=== PATIENT | male | born 1950 | race Caucasian/White ===

== ENCOUNTER 2016-07-17 10:38 | Outpatient (CLI) | payer MEDICARE, OTHER | END 2016-07-17 10:39 | disposition home or self-care (01) | DX: G47.33 Obstructive sleep apnea (adult) (pediatric) (principal) | CPT/HCPCS: 99203; G0463 ==

== ENCOUNTER 2016-08-17 21:17 | Outpatient (CLI) | payer MEDICARE, OTHER | END 2016-08-17 21:18 | disposition home or self-care (01) | DX: G47.33 Obstructive sleep apnea (adult) (pediatric) (principal); G47.61 Periodic limb movement disorder ==

== ENCOUNTER 2016-09-07 09:11 | Outpatient (CLI) | payer MEDICARE, OTHER | END 2016-09-07 09:12 | disposition home or self-care (01) | DX: G47.61 Periodic limb movement disorder (principal); R06.83 Snoring; G47.00 Insomnia, unspecified | CPT/HCPCS: 99214; G0463 ==

== ENCOUNTER 2022-05-06 14:48 | Outpatient (CLI) | payer MEDICARE, OTHER | END 2022-05-06 14:49 | disposition critical access hospital (66) | LOC: EMS 14:48 | DX: R07.9 Chest pain, unspecified (principal) | CPT/HCPCS: A0425; A0427 ==

== ENCOUNTER 2022-05-06 14:57 | Emergency (ER) | payer MEDICARE, OTHER ==
--- NOTE | 2022-05-06 15:25 | ED Physician Documentation ---
PD HPI CHEST PAIN - Stated complaint Stated Complaint: CP - Chief complaint Chief Complaint: Cardiac - History obtained from History obtained from: Patient - History of Present Illness Timing - onset: How many days ago (3) Timing - onset during: Exertion (3) Timing - duration: Days (3) Timing - details: Gradual onset, Intermittant Quality: Pressure, Tightness Location: Substernal Radiation: Back Improved by: Rest Worsened by: Exertion (The patient has noticed a pressure type pain and substernal into the back with walking and going up steps for the last 3 days. Last night and today he noticed it at times with rest.). No: Inspiration, Eating, Movement Associated symptoms: No: Shortness of air, Nausea, Feeling faint / dizzy, Palpitations, Cough Similar symptoms before: Has not had sx before Recently seen: Not recently seen Review of Systems Constitutional: denies: Fever, Chills Nose: denies: Rhinorrhea / runny nose Throat: denies: Sore throat Cardiac: reports: Chest pain / pressure. denies: Palpitations, Pedal edema, Calf pain Respiratory: denies: Dyspnea, Cough GI: denies: Abdominal Pain, Nausea, Vomiting, Diarrhea Skin: denies: Rash Neurologic: denies: Near syncope PD PAST MEDICAL HISTORY - Past Medical History Cardiovascular: Hypertension, High cholesterol Respiratory: None Neuro: None Endocrine/Autoimmune: Type 2 diabetes : Benign prostate hypertrophy - Present Medications Home Medications: Ambulatory Orders Medication Instructions Recorded Confirmed Sulfacetamide 10% Ophth Drops 1 drops RIGHTEYE Q3H #1 bottle 01/08/16 [Sulfamide 10% Ophth Drops] Finasteride [Proscar] 5 mg PO DAILY 05/06/22 05/06/22 Omeprazole Magnesium 20 mg PO 05/06/22 Simvastatin [Zocor] 40 mg PO 05/06/22 Sitagliptin Phos/Metformin HCl 05/06/22 [Janumet 50-500 mg Tablet] Sitagliptin Phos/Metformin HCl 05/06/22 [Janumet 50-500 mg Tablet] Tamsulosin [Flomax] 0.4 mg PO DAILY 05/06/22 05/06/22 Telmisartan 05/06/22 - Allergies Allergies/Adverse Reactions: Allergies Allergy/AdvReac Type Severity Reaction Status Date / Time No Known Drug Allergies Allergy Verified 05/06/22 15:04 - Living Situation Living Situation: reports: Alone Living Arrangement: reports: At home, Other (very active at home.) - Social History Does the pt smoke?: No Smoking Status: Never smoker PD ED PE NORMAL - Vitals Vital signs reviewed: Yes - General General: Alert and oriented X 3, No acute distress, Well developed/nourished - HEENT HEENT: Pharynx benign - Neck Neck: Supple, no meningeal sign, No adenopathy - Cardiac Cardiac: RRR, No murmur - Respiratory Respiratory: No respiratory distress, Clear bilaterally - Abdomen Abdomen: Normal bowel sounds, Soft, Non tender, Non distended - Back Back: No spinal TTP - Derm Derm: Normal color, Warm and dry - Extremities Extremities: Normal ROM s pain, No edema, No calf tenderness / cord - Neuro Neuro: Alert and oriented X 3, No motor deficit, Normal speech Results - Vitals Vitals: Vital Signs - 24 hr 05/06/22 05/06/22 05/06/22 15:04 15:09 15:39 Temperature 36.5 C 36.5 C Heart Rate 66 66 63 Respiratory 16 16 14 Rate Blood Pressure 181/82 H 181/82 H 156/80 H O2 Saturation 98 98 96 05/06/22 05/06/22 05/06/22 16:09 17:00 17:30 Temperature Heart Rate 64 65 66 Respiratory 15 13 12 Rate Blood Pressure 170/84 H 172/88 H 140/62 H O2 Saturation 96 96 96 Oxygen O2 Source Room air - EKG (time done) 15:39 Rate: Rate (enter#) (59) Rhythm: NSR [place]: Normal Intervals: Normal [place] QRS: Normal Ischemia: Normal ST segments. No: ST elevation c/w ischemia, ST depression - Labs Labs: Laboratory Tests 05/06/22 05/06/22 05/06/22 15:37 15:37 15:37 WBC 8.8 RBC 4.89 Hgb 14.7 Hct 43.9 MCV 89.8 MCH 30.1 MCHC 33.5 RDW 12.3 Plt Count 181 MPV 9.6 Neut # (Auto) 4.1 Lymph # (Auto) 3.9 H [place] # (Auto) 0.5 Eos # (Auto) 0.1 Baso # (Auto) 0.1 Absolute Nucleated RBC 0.00 Nucleated RBC % 0.0 Sodium 136 Potassium 4.2 Chloride 101 Carbon Dioxide 25 Anion Gap 10.0 BUN 15 Creatinine 0.9 Estimated GFR (MDRD) 82 L Glucose 141 H Calcium 9.5 Total Bilirubin 0.8 AST 20 ALT 24 Alkaline Phosphatase 55 Troponin I High Sens 124.3 H* B-Natriuretic Peptide Total Protein 7.4 Albumin 4.3 Globulin 3.1 Albumin/Globulin Ratio 1.4 Lipase 58 H 05/06/22 05/06/22 15:37 16:48 WBC RBC Hgb Hct MCV MCH MCHC RDW Plt Count MPV Neut # (Auto) Lymph # (Auto) Delta # (Auto) Eos # (Auto) Baso # (Auto) Absolute Nucleated RBC Nucleated RBC % Sodium Potassium Chloride Carbon Dioxide Anion Gap BUN Creatinine Estimated GFR (MDRD) Glucose Calcium Total Bilirubin AST ALT Alkaline Phosphatase Troponin I High Sens 129.2 H* B-Natriuretic Peptide 47 Total Protein Albumin Globulin Albumin/Globulin Ratio Lipase - Rads (name of study) chest xray Radiology: Prelim report reviewed (no cardiopulmonary acute changes), See rad report PD MEDICAL DECISION MAKING - ED course Complexity details: reviewed results (ECG without ischemic changes), considered differential (Patient has had several days of exertional chest pain but also some pain at rest. His EKG is normal but has an elevated troponin concerning for unstable angina. Given Lovenox, beta-agustina, and nitro patch. Already had aspirin at home. Statin daily.), d/w patient ED course: The patient has exertional chest pain and then some what at rest over the past several days. Some exertional dyspnea for a week or 2 prior. He has no EKG changes. He had felt improved on route with nitroglycerin by EMS. He had taken aspirin at home. He does have an elevated troponin with the repeat being similar. This would be likely consistent with or concerning for either mild myocardial occlusion or more likely unstable angina. I feel he needs more cardiac evaluation with evaluation of unstable angina. We do not offer the services at our hospital. We will attempt transfer but at this point no other outlying facilities have beds available. The patient is given nitro patch, Lovenox, metoprolol here. He does take an aspirin earlier today so does not need one here. We will start 1 daily. He does take atorvastatin and a blood pressure medicine at home. We will continue these. We will since continue to seek bed availability for transfer. Departure - Departure Disposition: 02 Transfer Acute Care Hosp Clinical Impression: Exertional chest pain, Elevated troponin, Unstable angina Condition: Stable Record reviewed to determine appropriate education?: Yes
--- NOTE | 2022-05-06 15:32 | XRAY Report ---
PROCEDURE: Chest 1 View X-Ray INDICATIONS: Chest Pain TECHNIQUE: One view of the chest was acquired. COMPARISON: None. FINDINGS: Surgical changes and devices: None. Lungs and pleura: No pleural effusions or pneumothorax. Lungs are clear. Mediastinum: Mediastinal contours appear normal. Heart size is normal. Bones and chest wall: No suspicious bony lesions. Overlying soft tissues appear unremarkable. IMPRESSION: No acute cardiopulmonary findings Reviewed by: Shahram Ayoub MD on 05/06/2022 2:31 PM [place] Approved by: Shahram Ayoub MD on 05/06/2022 2:31 PM AKST Station ID: [id number]
[2022-05-06 15:49] LABS: BASOPHILS # (AUTO) 0.1 10^3/uL (0.0-0.1); EOSINOPHILS # (AUTO) 0.1 10^3/uL (0.0-0.7); EOSINOPHILS % (AUTO) 1.6 %; HCT - HEMATOCRIT 43.9 % (42.0-52.0); HGB - HEMOGLOBIN 14.7 g/dL (14.0-18.0); LYMPHOCYTES # (AUTO) 3.9 10^3/uL (1.5-3.5); LYMPHOCYTES % (AUTO) 44.9 %; MEAN CORPUSCULAR HEMOGLOBIN 30.1 pg (27.0-31.0); MEAN CORPUSCULAR HGB CONC 33.5 g/dL (32.0-36.0); MEAN CORPUSCULAR VOLUME 89.8 fL (80.0-94.0); MEAN PLATELET VOLUME 9.6 fL (7.4-11.4); MONOCYTES # (AUTO) 0.5 10^3/uL (0.0-1.0); MONOCYTES % (AUTO) 5.5 %; NEUTROPHILS # (AUTO) 4.1 10^3/uL (1.5-6.6); NEUTROPHILS % (AUTO) 46.8 %; PLT - PLATELET COUNT 181 10^3/uL (130-450); RED BLOOD COUNT 4.89 10^6/uL (4.70-6.10); RED CELL DISTRIBUTION WIDTH 12.3 % (12.0-15.0); WHITE BLOOD COUNT 8.8 x10^3/uL (4.8-10.8)
[2022-05-06 15:58] LABS: ALBUMIN 4.3 g/dL (3.2-5.5); ALBUMIN/GLOBULIN RATIO 1.4 (1.0-2.2); BILIRUBIN,TOTAL 0.8 mg/dL (0.2-1.0); CALCIUM 9.5 mg/dL (8.5-10.3); CREATININE 0.9 mg/dL (0.6-1.2); POTASSIUM 4.2 mmol/L (3.5-5.0); TOTAL PROTEIN 7.4 g/dL (6.7-8.2)
[2022-05-06] MEDS ORDERED: NITROGLYCERIN 0.2 MG/HR PATCH TOP STA (16:34)
[2022-05-06] MEDS ORDERED: ENOXAPARIN 100 MG/ML SYRINGE SUBQ STA (16:34)
[2022-05-06] MEDS ORDERED: METOPROLOL SUCCINATE 25 MG TABLET PO STA (17:59)
[2022-05-07] MEDS: TAMSULOSIN 0.4 MG CAPSULE PO SCH (09:13)
[2022-05-07] MEDS: ENOXAPARIN 100 MG/ML SYRINGE SUBQ SCH ×2 (09:13→20:46)
[2022-05-07] MEDS: ASPIRIN EC 81 MG TABLET PO SCH (09:13)
[2022-05-07] MEDS: METOPROLOL SUCCINATE 25 MG TABLET PO SCH (09:13)
[2022-05-07] MEDS: metFORMIN 500 MG TABLET PO SCH ×2 (09:13→20:46)
[2022-05-07] MEDS: ATORVASTATIN 40 MG TABLET PO SCH (09:13)
--- NOTE | 2022-05-07 12:22 | ED Physician Documentation ---
ED Addendum - Addendum Addendum: 05/07/22 12:19 The patient is awake alert and conversant. He was eating breakfast as I met with him. He states he was feeling fine at this time without any pain. He states he had a couple of twinges of pain in his chest and scapular area overnight but did not tell anybody about it. It was not consistent. Blood tests this morning showed a leveling of his troponin at the 400s level. Given still some intermittent chest discomfort at rest, I feel the patient still needs cardiac evaluation. No other facilities have yet to come up with a bed available. He had had a nitro patch on yesterday but was off over the evening and overnight. This may account for some of his chest discomfort overnight. I ordered a nitro patch to be daily. He is continuing with the Lovenox, statin, beta-agustina, aspirin as well as his usual home medicines. We are still looking for accepting facility for transfer for cardiology evaluation. Assessment: Unstable angina with elevated troponin.
[2022-05-07] MEDS: NITROGLYCERIN 0.4 MG/HR PATCH TOP SCH (12:51)
[2022-05-07] MEDS ORDERED: diphenhydrAMINE 25 MG CAPSULE PO STA (21:58)
[2022-05-08] MEDS: ASPIRIN EC 81 MG TABLET PO SCH (10:29)
[2022-05-08] MEDS: ATORVASTATIN 40 MG TABLET PO SCH (10:29)
[2022-05-08] MEDS: ENOXAPARIN 100 MG/ML SYRINGE SUBQ SCH ×2 (10:29→20:58)
[2022-05-08] MEDS: TAMSULOSIN 0.4 MG CAPSULE PO SCH (10:30)
[2022-05-08] MEDS: metFORMIN 500 MG TABLET PO SCH ×2 (10:30→20:59)
[2022-05-08] MEDS: METOPROLOL SUCCINATE 25 MG TABLET PO SCH (10:30)
[2022-05-08] MEDS: NITROGLYCERIN 0.4 MG/HR PATCH TOP SCH (10:43)
--- NOTE | 2022-05-08 15:12 | ED Physician Documentation ---
ED Addendum - Addendum Addendum: 05/08/22 15:09 Patient had 30 second episode of chest pain when sitting up. Repeat EKG shows no acute abnormalities. Time of EKG 1444. 80, sinus rhythm, left axis deviation. Inverted T waves in 3 and aVF. Patient now asymptomatic
--- NOTE | 2022-05-08 18:17 | ED Physician Documentation ---
ED Addendum - Addendum Addendum: 05/08/22 18:15 Patient was signed out to me at change of shift this morning, pending transfer for non-ST elevation GA. Patient has been without complaints today, and is chest pain-free. He is continued his medications as recommended by cardiology. He continues to be on the waiting list for transfer.
[2022-05-08 19:21] LABS: BASOPHILS # (AUTO) 0.1 10^3/uL (0.0-0.1); EOSINOPHILS # (AUTO) 0.2 10^3/uL (0.0-0.7); EOSINOPHILS % (AUTO) 1.7 %; HGB - HEMOGLOBIN 14.3 g/dL (14.0-18.0); LYMPHOCYTES # (AUTO) 4.8 10^3/uL (1.5-3.5); LYMPHOCYTES % (AUTO) 45.6 %; MEAN CORPUSCULAR HEMOGLOBIN 30.3 pg (27.0-31.0); MEAN CORPUSCULAR HGB CONC 33.3 g/dL (32.0-36.0); MEAN CORPUSCULAR VOLUME 91.1 fL (80.0-94.0); MEAN PLATELET VOLUME 9.4 fL (7.4-11.4); MONOCYTES # (AUTO) 0.7 10^3/uL (0.0-1.0); MONOCYTES % (AUTO) 6.9 %; NEUTROPHILS # (AUTO) 4.7 10^3/uL (1.5-6.6); NEUTROPHILS % (AUTO) 44.4 %; PLT - PLATELET COUNT 199 10^3/uL (130-450); RED BLOOD COUNT 4.72 10^6/uL (4.70-6.10); RED CELL DISTRIBUTION WIDTH 12.6 % (12.0-15.0); WHITE BLOOD COUNT 10.5 x10^3/uL (4.8-10.8)
[2022-05-08 19:32] LABS: ALBUMIN 4.2 g/dL (3.2-5.5); ALBUMIN/GLOBULIN RATIO 1.3 (1.0-2.2); BILIRUBIN,TOTAL 0.8 mg/dL (0.2-1.0); CALCIUM 9.3 mg/dL (8.5-10.3); TOTAL PROTEIN 7.5 g/dL (6.7-8.2)
[2022-05-08] MEDS ORDERED: diphenhydrAMINE 25 MG CAPSULE PO STA (20:45)
[2022-05-09] MEDS: ASPIRIN EC 81 MG TABLET PO SCH (08:36)
[2022-05-09] MEDS: metFORMIN 500 MG TABLET PO SCH ×2 (08:37→20:34)
[2022-05-09] MEDS: ATORVASTATIN 40 MG TABLET PO SCH (08:37)
[2022-05-09] MEDS: METOPROLOL SUCCINATE 25 MG TABLET PO SCH (08:37)
[2022-05-09] MEDS: TAMSULOSIN 0.4 MG CAPSULE PO SCH (08:38)
[2022-05-09] MEDS: ENOXAPARIN 100 MG/ML SYRINGE SUBQ SCH ×2 (08:44→20:34)
[2022-05-09] MEDS: NITROGLYCERIN 0.4 MG/HR PATCH TOP SCH (08:49)
--- NOTE | 2022-05-09 13:43 | ED Physician Documentation ---
ED Addendum - Addendum Addendum: 05/09/22 13:39 The patient states he has been feeling okay over the last several days. He reports a vague chest tightness periodically but no pain or consistency. He is maintained on Lovenox, aspirin, statin, beta-agustina and nitro patch. An echocardiogram was done this morning with results pending. As of this time of this report, there had not been any excepting facilities for further evaluation of his non-STEMI versus unstable angina. Concerning is still the episodic chest discomfort. We could consider increasing the nitro paste or changing to Imdur. Can reassess troponin again later today to ensure still lowering. Awaiting transfer for further cardiac evaluation. 05/09/22 13:42 Addendum with review of the echocardiographic worksheet: The patient has an overall ejection fraction of 55 to 60%. No obvious regional wall abnormalities are seen. There are some mild thickening of the mitral valve leaflets. No effusions seen. As such there is not any obvious regional infarct visible by regional wall abnormality. This may actually limit give credence to the idea of unstable angina without a full area of infarct as yet. I still feel he needs better assessment of coronary flow and cardiology evaluation.
[2022-05-09] MEDS: ISOSORBIDE MONONITRATE ER 30 MG TABLET PO SCH (14:36)
[2022-05-09] MEDS ORDERED: diphenhydrAMINE 25 MG CAPSULE PO STA (20:36)
[2022-05-10] MEDS ORDERED: SIMETHICONE CHEW 80 MG TABLET PO STA (01:06)
[2022-05-10 07:21] LABS: CALCIUM 9.4 mg/dL (8.5-10.3); CREATININE 0.9 mg/dL (0.6-1.2)
[2022-05-10] MEDS: ASPIRIN EC 81 MG TABLET PO SCH (10:37)
[2022-05-10] MEDS: ATORVASTATIN 40 MG TABLET PO SCH (10:37)
[2022-05-10] MEDS: metFORMIN 500 MG TABLET PO SCH ×2 (10:37→20:34)
[2022-05-10] MEDS: ISOSORBIDE MONONITRATE ER 30 MG TABLET PO SCH (10:37)
[2022-05-10] MEDS: ENOXAPARIN 100 MG/ML SYRINGE SUBQ SCH ×2 (10:37→20:34)
[2022-05-10] MEDS: METOPROLOL SUCCINATE 25 MG TABLET PO SCH (10:38)
[2022-05-10] MEDS: TAMSULOSIN 0.4 MG CAPSULE PO SCH (10:38)
--- NOTE | 2022-05-10 17:55 | ED Physician Documentation ---
ED Addendum - Addendum Addendum: 05/10/22 17:54 The patient was signed out to me at change of shift, continuing to board in the emergency department with a non-ST elevation CA, awaiting acceptance at a facility with cardiology capabilities. The patient has not had any stated complaints today, though throughout the night he had continued to have occasional episodes of chest pain. It has continued to be felt by the original provider and cardiology that the patient should continue the plan to be transferred to an inpatient setting with cardiology, as there is concern over unstable angina. The patient continues to be waitlisted at other facilities with this capability and we will continue to monitor his situation until he is excepted or cleared by cardiology.
[2022-05-10] MEDS ORDERED: diphenhydrAMINE 25 MG CAPSULE PO PRN (21:41)
[2022-05-11] MEDS: ENOXAPARIN 100 MG/ML SYRINGE SUBQ SCH (09:15)
[2022-05-11] MEDS: ASPIRIN EC 81 MG TABLET PO SCH (09:15)
[2022-05-11] MEDS: METOPROLOL SUCCINATE 25 MG TABLET PO SCH (09:15)
[2022-05-11] MEDS: ISOSORBIDE MONONITRATE ER 30 MG TABLET PO SCH (09:15)
[2022-05-11] MEDS ORDERED: CARBOXYMETHYLCELLULOSE OPHTH DROPS EACHEYE PRN (09:24)
[2022-05-11] MEDS: ATORVASTATIN 40 MG TABLET PO SCH (09:27)
[2022-05-11] MEDS: TAMSULOSIN 0.4 MG CAPSULE PO SCH (09:28)
[2022-05-11] MEDS: metFORMIN 500 MG TABLET PO SCH (09:28)
--- NOTE | 2022-05-11 09:38 | ED Physician Documentation ---
ED Addendum - Addendum Addendum: 05/11/22 09:37 Spoke with [facility], hospitalist, Dr. Galicia, who graciously accepts in transfer. We will await bed confirmation prior to transfer. Patient is doing well this morning. No chest pain. His troponin is down to 80 yesterday. His echocardiogram does not show any acute abnormalities and chest x-ray does not show any acute abnormalities. COBRA forms completed. This document was made in part using voice recognition software. While efforts are made to proofread this document, sound alike and grammatical errors may occur. Departure - Departure Disposition: 02 Transfer Acute Care Hosp Clinical Impression: Exertional chest pain, Elevated troponin, Unstable angina Condition: Stable
[2022-05-11 10:42] VITALS: BP 109/93
== END 2022-05-11 12:25 | disposition short-term general hospital (02) ==
LOC: EDUNIT# → ED 14:57
DX: I21.4 Non-ST elevation (NSTEMI) myocardial infarction (principal); I11.9 Hypertensive heart disease without heart failure; Z20.822 Contact with and (suspected) exposure to COVID-19
CPT/HCPCS: 36415; 71045; 80048; 80053; 83690; 83735; 83880; 84484; 85025; 87635; 93005; 93306; 99284; 99285; A9270; J1650

== ENCOUNTER 2022-08-11 10:56 | Outpatient (CLI) | payer MEDICARE, OTHER ==
[2022-08-11 11:15] LABS: CALCIUM 9.8 mg/dL (8.5-10.3); POTASSIUM 4.4 mmol/L (3.5-5.0)
== END 2022-08-11 10:57 | disposition home or self-care (01) ==
LOC: LAB 10:56
PROVIDERS: ATTEND Internal Medicine Cardiovascular Disease
DX: I25.10 Atherosclerotic heart disease of native coronary artery without angina pectoris (principal)
CPT/HCPCS: 36415; 80048; 93798

== ENCOUNTER 2022-12-11 14:05 | Emergency (ER) | payer MEDICARE, OTHER ==
--- NOTE | 2022-12-11 14:27 | ED Physician Documentation ---
PD HPI CHEST PAIN - Stated complaint Stated Complaint: CHEST PX - Chief complaint Chief Complaint: Cardiac - History obtained from History obtained from: Patient - Additional information Additional information: 72-year-old gentleman who had an NSTEMI in April of last year. He has a history of hypertension, hyperlipidemia and type 2 diabetes as well. Had extended boarding here and then was sent to [facility] where he had an angiogram with 2 stents and also had 2 other arteries with 80 and 90% occlusions. 9 days ago he had 20 to 30 minutes of pain with improvement with nitroglycerin. Last night he had about 5 minutes of substernal chest pain also with improvement with nitroglycerin that started around 11 PM while trying to sleep at rest. Still has mild tightness in his chest, but no shortness of breath, nausea, dizziness, pedal edema or calf pain. No recent travel. Has had aspirin today. PD PAST MEDICAL HISTORY - Past Medical History Cardiovascular: Hypertension, High cholesterol Respiratory: None Neuro: None Endocrine/Autoimmune: Type 2 diabetes : Benign prostate hypertrophy - Present Medications Home Medications: Ambulatory Orders Medication Instructions Recorded Confirmed Finasteride [Proscar] 5 mg PO DAILY 05/06/22 12/11/22 Sitagliptin Phos/Metformin HCl 1 tab PO BID 05/06/22 12/11/22 [Janumet 50-500 mg Tablet] Tamsulosin [Flomax] 0.4 mg PO DAILY 05/06/22 12/11/22 Telmisartan 20 mg PO DAILY 05/06/22 12/11/22 Ascorbic Acid [Vitamin C] 1,000 mg PO BID 05/07/22 12/11/22 Multivit-Min/Vit C/Herb No.124 1 tab PO BID 05/07/22 12/11/22 [Airborne Chewable Tablet] Multivitamin 1 each PO DAILY 05/07/22 12/11/22 Aspirin [Inniswold Aspirin] 81 mg PO DAILY 12/11/22 12/11/22 Atorvastatin Calcium 40 mg PO HS 12/11/22 12/11/22 Clopidogrel [Plavix] 75 mg PO DAILY 12/11/22 12/11/22 Isosorbide Mononitrate ER [Imdur] 30 mg PO DAILY #30 tablet 12/11/22 Metoprolol Tartrate [Lopressor] 25 mg PO BID 12/11/22 12/11/22 Pantoprazole Sodium 20 mg PO DAILY 12/11/22 12/11/22 amLODIPine [Norvasc] 5 mg PO DAILY 12/11/22 12/11/22 - Allergies Allergies/Adverse Reactions: Allergies Allergy/AdvReac Type Severity Reaction Status Date / Time No Known Drug Allergies Allergy Verified 12/11/22 14:16 - Social History Does the pt smoke?: No Smoking Status: Never smoker PD ED PE NORMAL - Vitals Vital signs reviewed: Yes - General General: Alert and oriented X 3, No acute distress - HEENT HEENT: PERRL, EOMI - Neck Neck: Supple, no meningeal sign, No bony TTP - Cardiac Cardiac: RRR, No murmur - Respiratory Respiratory: No respiratory distress, Clear bilaterally - Abdomen Abdomen: Non tender - Extremities Extremities: No edema, No calf tenderness / cord - Neuro Neuro: Alert and oriented X 3, Normal speech Results - Vitals Vitals: Vital Signs - 24 hr 12/11/22 12/11/22 12/11/22 14:11 14:43 15:48 Temperature 35.6 C L Heart Rate 73 68 66 Respiratory 16 17 18 Rate Blood Pressure 143/66 H 145/73 H 135/74 H O2 Saturation 96 99 100 12/11/22 16:10 Temperature Heart Rate 65 Respiratory 15 Rate Blood Pressure 147/64 H O2 Saturation 100 Oxygen O2 Source Room air - EKG (time done) 1417 EKG releavant findings:: EKG personally interpreted by author of this note. Relevant findings are: Rate: Rate (enter#) (70) Rhythm: NSR [place]: Normal Intervals: Prolonged [place] QRS: Normal Ischemia: Non specific changes. No: ST elevation c/w ischemia, ST depression - Labs Labs: Laboratory Tests 12/11/22 12/11/22 12/11/22 14:34 14:34 14:34 WBC 11.2 H RBC 4.60 L Hgb 14.2 Hct 41.5 L MCV 90.2 MCH 30.9 MCHC 34.2 RDW 12.9 Plt Count 177 MPV 9.5 Neut # (Auto) 3.4 Lymph # (Auto) 6.7 H [place] # (Auto) 0.6 Eos # (Auto) 0.3 Baso # (Auto) 0.1 Absolute Nucleated RBC 0.00 Nucleated RBC % 0.0 Manual Slide Review Indicated Platelet Estimate NORMAL (130-450,000) Platelet Morphology NORMAL APPEARANCE RBC Morph Micro Appear NORMAL APPEARANCE Sodium 138 Potassium 4.3 Chloride 108 Carbon Dioxide 24 Anion Gap 6.0 BUN 18 Creatinine 0.9 Estimated GFR (MDRD) 82 L Glucose 205 H Calcium 9.1 Total Bilirubin 1.0 AST 16 ALT 23 Alkaline Phosphatase 49 Troponin I High Sens < 2.3 L Total Protein 7.0 Albumin 4.0 Globulin 3.0 Albumin/Globulin Ratio 1.3 Lipase 58 H PD Medical Decision Making - ED course ED course: He is pain-free now. EKG not clearly ischemic. We will check troponin and plan to touch base with his master sheet clerk. 72-year-old gentleman with known coronary disease presents with resolved rest pain with negative ischemic work-up here. I discussed the case with his master sheet clerk who plans to contact him tomorrow and recommends 30 mg of Imdur daily in the interim. Departure - Departure Disposition: 01 Home, Self Care Clinical Impression: Chest pain Condition: Good Instructions: Nitroglycerin Long Act Dc, Angina Dc Prescriptions: Isosorbide Mononitrate ER [Imdur] 30 mg PO DAILY #30 tablet Comments: Today I did discuss her case with Dr. Martinez and she plans to have her office contact you tomorrow. Return for recurrent pain and you can still take the regular nitroglycerin in addition to the new pill which is just scheduled at once a day.
[2022-12-11 14:46] LABS: BASOPHILS # (AUTO) 0.1 10^3/uL (0.0-0.1); EOSINOPHILS # (AUTO) 0.3 10^3/uL (0.0-0.7); EOSINOPHILS % (AUTO) 2.4 %; HCT - HEMATOCRIT 41.5 % (42.0-52.0); HGB - HEMOGLOBIN 14.2 g/dL (14.0-18.0); LYMPHOCYTES # (AUTO) 6.7 10^3/uL (1.5-3.5); LYMPHOCYTES % (AUTO) 60.2 %; MEAN CORPUSCULAR HEMOGLOBIN 30.9 pg (27.0-31.0); MEAN CORPUSCULAR HGB CONC 34.2 g/dL (32.0-36.0); MEAN CORPUSCULAR VOLUME 90.2 fL (80.0-94.0); MEAN PLATELET VOLUME 9.5 fL (7.4-11.4); MONOCYTES # (AUTO) 0.6 10^3/uL (0.0-1.0); MONOCYTES % (AUTO) 5.5 %; NEUTROPHILS # (AUTO) 3.4 10^3/uL (1.5-6.6); NEUTROPHILS % (AUTO) 30.5 %; PLT - PLATELET COUNT 177 10^3/uL (130-450); RED CELL DISTRIBUTION WIDTH 12.9 % (12.0-15.0); WHITE BLOOD COUNT 11.2 x10^3/uL (4.8-10.8)
[2022-12-11 14:50] LABS: SLIDE REVIEW? Indicated
--- NOTE | 2022-12-11 14:53 | XRAY Report ---
PROCEDURE: Chest 1 View X-Ray INDICATIONS: Chest Pain TECHNIQUE: One view of the chest was acquired. COMPARISON: 05/06/2022. FINDINGS: Surgical changes and devices: None. Lungs and pleura: No pleural effusions or pneumothorax. Lungs are clear. Mediastinum: Mediastinal contours appear normal. Heart size is normal. Bones and chest wall: No suspicious bony lesions. Overlying soft tissues appear unremarkable. IMPRESSION: No acute cardiopulmonary process. Reviewed by: Sai Colorado MD on 12/11/2022 2:52 PM PDT Approved by: Sai Colorado MD on 12/11/2022 2:52 PM PDT Station ID: [id number]
[2022-12-11 15:01] LABS: ALBUMIN/GLOBULIN RATIO 1.3 (1.0-2.2); CALCIUM 9.1 mg/dL (8.5-10.3); CREATININE 0.9 mg/dL (0.6-1.2); POTASSIUM 4.3 mmol/L (3.5-5.0)
[2022-12-11 15:22] LABS: PLATELET ESTIMATE, MANUAL NORMAL (130-450,000) (NORMAL); PLATELET MORPHOLOGY NORMAL APPEARANCE (NORMAL); RBC MORPHOLOGY (MULTIPLE) NORMAL APPEARANCE (NORMAL)
[2022-12-11] MEDS ORDERED: ISOSORBIDE MONONITRATE ER 30 MG TABLET PO STA (17:05)
[2022-12-11 17:12] VITALS: BP 138/71
== END 2022-12-11 17:20 | disposition home or self-care (01) ==
LOC: ED 14:05
DX: R07.89 Other chest pain (principal); I10 Essential (primary) hypertension; E11.9 Type 2 diabetes mellitus without complications; E78.00 Pure hypercholesterolemia, unspecified; Z79.84 Long term (current) use of oral hypoglycemic drugs; Z79.899 Other long term (current) drug therapy; Z79.82 Long term (current) use of aspirin
CPT/HCPCS: 36415; 71045; 80053; 83690; 84484; 85025; 93005; 99283; 99284; A9270

== ENCOUNTER 2023-12-13 08:00 | Outpatient (CLI) | payer MEDICARE, OTHER ==
[2023-12-13 14:13] LABS: INFLUENZA A- RESP PCR PANEL NOT DETECTED; INFLUENZA B - RESP PCR PANEL NOT DETECTED; RSV- RESP PCR PANEL NOT DETECTED; SARS-CoV-2 -RESP PCR PANEL NOT DETECTED
== END 2023-12-13 23:59 | disposition home or self-care (01) ==
LOC: LAB 08:00
PROVIDERS: ATTEND Physician Assistant
DX: J18.9 Pneumonia, unspecified organism (principal)
CPT/HCPCS: 87637

== ENCOUNTER 2023-12-13 09:38 | Outpatient (CLI) | payer MEDICARE, OTHER ==
--- NOTE | 2023-12-13 13:08 | XRAY Report ---
PROCEDURE: Chest 2V INDICATIONS: PNEUMONIA TECHNIQUE: 2 views of the chest were acquired. COMPARISON: Chest x-ray 12/12/2023 FINDINGS: Surgical changes and devices: None. Lungs and pleura: No pleural effusions or pneumothorax. Lungs are clear. Mediastinum: Mediastinal contours appear normal. Heart size is normal. Bones and chest wall: No suspicious bony lesions. Overlying soft tissues appear unremarkable. IMPRESSION: No acute cardiopulmonary process. Reviewed by: Katerina Barrera MD on 12/13/2023 1:07 PM PDT Approved by: Katerina Barrera MD on 12/13/2023 1:07 PM PDT Station ID: [id number]
== END 2023-12-13 09:39 | disposition home or self-care (01) ==
LOC: DI 09:38
PROVIDERS: ATTEND Physician Assistant
DX: J18.9 Pneumonia, unspecified organism (principal)